=== PATIENT | female | born 1995 | race Caucasian/White ===

== ENCOUNTER 2018-11-14 03:59 | Emergency (ER) | payer MEDICAID ==
[~2018-11-14] VITALS: Ht 154.9 cm; Wt 45.6 kg
[2018-11-14 04:15] VITALS: Ht 154.9 cm; Wt 45.6 kg
--- NOTE | 2018-11-14 04:27 | ERD ---
ER Documentation Chief Complaint Chief Complaint vb x4 days, 3 months , + meth use, [place] [facility] [place] and are negative except as per history of present illness. Allergies Allergies: Coded Allergies: No Known Drug Allergies (Verified Allergy, Unknown, 11/14/18) Physical Exam Vitals Vital Signs Date Temp Pulse Resp B/P (MAP) Pulse Ox O2 O2 Flow FiO2 Time Delivery Rate 11/14/18 97.9 146 20 109/56 100 04:15 (73) Physical Exam Const: No acute distress Head: Atraumatic Eyes: Normal Conjunctiva ENT: Normal External Ears, Nose and Mouth. Neck: Full range of motion. No meningismus. Resp: Clear to auscultation bilaterally Cardio: Regular rate and rhythm, no murmurs Abd: Soft, non tender, non distended. Normal bowel sounds Skin: No petechiae or rashes Back: No midline or flank tenderness Ext: No cyanosis, or edema Neur: Awake and alert Psych: Normal Mood and Affect Results 24 hrs Current Medications Medications Dose Sig/Sandy Start Time Status Last (Trade) Ordered Route PRN Stop Time Admin Dose Reason Admin Sodium 1,000 ml @ Q1H STAT 11/14/18 Chloride 1,000 mls/hr IV 04:40 11/14/18 05:39 MACARENA MATA MD November 14, 2018 04:27
[2018-11-14] MEDS ORDERED: SOD CHLORIDE 0.9% 1,000 ML IV STA (04:40)
--- NOTE | 2018-11-14 06:47 | ERD ---
ER Documentation Chief Complaint Chief Complaint vb x4 days, 3 months , + meth use, just got dc'd from [facility] This is a 23-year-old female who is approximately 3 months by last menstrual period who is abusing amphetamines who presents to the ER for evaluation of vaginal bleeding. The patient states she is got vaginal bleeding and she is passing clots for the past 4 days. The patient states that she was just at [facility] emergency room and was discharged with the diagnosis of miscarriage. The patient denies any fevers chills nausea or vomiting. She states her last amphetamine use was yesterday. ROS All systems reviewed and are negative except as per history of present illness. Allergies Allergies: Coded Allergies: No Known Drug Allergies (Verified Allergy, Unknown, 11/14/18) PMhx/Soc Medical and Surgical Hx: pt denies Surgical Hx History of Surgery: Yes (pelvic surgery) Hx Substance Use: Yes (meth) Hx Tobacco Use: Yes Smoking Status: Current every day smoker Physical Exam Vitals Vital Signs Date Temp Pulse Resp B/P (MAP) Pulse Ox O2 O2 Flow FiO2 Time Delivery Rate 11/14/18 113 13 104/65 100 Room Air 05:23 (78) 11/14/18 97.9 146 20 109/56 100 04:15 (73) Physical Exam Const: No acute distress Head: Atraumatic Eyes: Normal Conjunctiva ENT: Normal External Ears, Nose and Mouth. Neck: Full range of motion. No meningismus. Resp: Clear to auscultation bilaterally Cardio: Regular rate and rhythm, no murmurs Abd: Soft, non tender, non distended. Normal bowel sounds Skin: No petechiae or rashes Back: No midline or flank tenderness Ext: No cyanosis, or edema Neur: Awake and alert Psych: Normal Mood and Affect Result Diagram: 11/14/18 0519 11/14/18 0515 Results 24 hrs Laboratory Tests Test 11/14/18 05:15 11/14/18 05:19 Sodium Level 143 mmol/L Potassium Level 4.1 mmol/L Chloride Level 105 mmol/L Carbon Dioxide Level 26 mmol/L Anion Gap 12 Blood Urea Nitrogen 5 mg/dl Creatinine 0.48 mg/dl Est Glomerular Filtrat Rate mL/min > 60 mL/min Glucose Level 175 mg/dl Calcium Level 8.9 mg/dl Total Bilirubin 0.2 mg/dl Direct Bilirubin 0.00 mg/dl Indirect Bilirubin 0.2 mg/dl Aspartate Amino Transf (AST/SGOT) 29 IU/L Alanine Aminotransferase (ALT/SGPT) 26 IU/L Alkaline Phosphatase 70 IU/L Total Protein 7.1 g/dl Albumin 4.2 g/dl Globulin 2.90 g/dl Albumin/Globulin Ratio 1.44 White Blood Count 12.7 10^3/ul Red Blood Count 3.81 10^6/ul Hemoglobin 11.5 g/dl Hematocrit 34.5 % Mean Corpuscular Volume 90.6 fl Mean Corpuscular Hemoglobin 30.2 pg Mean Corpuscular Hemoglobin Concent 33.3 g/dl Red Cell Distribution Width 12.7 % Platelet Count 266 10^3/UL Mean Platelet Volume 9.1 fl Immature Granulocytes % 0.500 % Neutrophils % 85.1 % Lymphocytes % 10.7 % Monocytes % 3.3 % Eosinophils % 0.1 % Basophils % 0.3 % Nucleated Red Blood Cells % 0.0 /100WBC Immature Granulocytes # 0.060 10^3/ul Neutrophils # 10.8 10^3/ul Lymphocytes # 1.4 10^3/ul Monocytes # 0.4 10^3/ul Eosinophils # 0.0 10^3/ul Basophils # 0.0 10^3/ul Nucleated Red Blood Cells # 0.0 10^3/ul Beta HCG, Quantitative 344.4 mIU/ml Ethyl Alcohol Level < 10.0 mg/dl Current Medications Medications Dose Sig/Sandy Start Time Status Last (Trade) Ordered Route PRN Stop Time Admin Dose Reason Admin Sodium 1,000 ml @ Q1H STAT 11/14/18 DC 11/14/18 Chloride 1,000 mls/hr IV 04:40 05:30 11/14/18 05:39 Procedures/MDM No intrauterine gestation visualized. Small left paraovarian simple cyst. Differential diagnosis includes early , missed or ectopic . Follow-up ultrasound and HCG levels is recommended. This 23-year-old female presents to the emergency room for evaluation of vaginal bleeding. The patient is passing clots. She is also using amphetamines. And states that she was 3 months . The patient left [facility] less than 12 hours ago. According to the physician at [facility] the patient did have a beta hCG level of 620. On today's lab work the patient does have a beta hCG level of 320. Her ultrasound does not show an intrauterine gestation. The patient is likely suffering from an incomplete caries. I have let this patient know that she will need to return to the emergency room in 48 hours for repeat beta hCG level to make sure that it is trending down. The gwen ent verbalized understanding will be discharged at this time. Departure Diagnosis: Primary Impression: Incomplete Additional Impression: Amphetamine abuse Condition: Stable GIO HANKS DO November 14, 2018 06:47
[2018-11-14 07:50] VITALS: BP 106/63; PULSE 90; RESP 16
== END 2018-11-14 07:50 | disposition home or self-care (01) ==
LOC: E/R 03:59
DX: O03.4 Incomplete spontaneous abortion without complication (principal); O99.311 Alcohol use complicating pregnancy, first trimester; F15.10 Other stimulant abuse, uncomplicated; O99.331 Smoking (tobacco) complicating pregnancy, first trimester; F17.210 Nicotine dependence, cigarettes, uncomplicated; F10.10 Alcohol abuse, uncomplicated; Z3A.12 12 weeks gestation of pregnancy
CPT/HCPCS: 36415; 76801; 76817; 80053; 80307; 84702; 85025; 86900; 86901; J7030; Z7502